=== PATIENT | male | born 1945 | race Caucasian/White ===

== ENCOUNTER → 2021-03-11 | Outpatient (CLI) | payer MEDICARE, OTHER ==
[~2021-03-11] MED LIST: ADVIL200 MG PO; ASPIRIN 32325 MG/TAB PO; ASPIRIN 81M81 MG/TA2 PO; DOXYCYCLINE 10100 MG PO; FERROUS SULFATE65 MG PO; FOLIC ACID 40400 MCG PO; IMODIUM 2MG CAPS2 MG PO; LEVAQUIN 5500 MG/TA1 PO; LOMOTIL 0.025 M1 TAB PO; NO HOME MEDICATIONS; NORCO 325 MG-51 TAB PO; PREDNISONE 5MG5 MG PO; PREDNISONE10 MG PO; STAY AWAKE200 MG PO; TYLENOL 500MG500 MG PO; VITAMIN C500 MG PO
== END ==
LOC: COL.RAD 09:53
DX: R06.02 Shortness of breath (principal)